=== PATIENT | male | born 1955 | race African-American/Black ===

== ENCOUNTER 2017-08-10 11:51 | Inpatient (IN) | payer MEDICARE, MEDICAID ==
[2017-08-10] VITALS (21 sets, daily range): BP systolic 80–142; BP diastolic 44–89
[~2017-08-10] VITALS: Ht 185.4 cm; Wt 115.2 kg
[~2017-08-10 11:51] MED LIST: ALLO100T PO; AMLO10TA80 PO; ASPI-1159 PO; ATOR20TA PO; CARI350T27 PO; CARV6.2548 PO; CLOP75TA16 PO; DULO60CA44 PO; FERR325T23 PO; FLUR30CA13 PO; FURO-151 PO; GABA-531 PO; HYDR-523 PO; LES20 PO; LORA-249 PO; LORA10TA7 PO; METF1000 PO; OMEP20CA10 PO; POTA8TAB4 PO; SITA100T11 PO; TRAM50TA73 PO; VALS160T2 PO; hydrochlorothiazide
[2017-08-10 12:29] LABS: HEMATOCRIT. 33.9 % (42.0-52.0); HEMOGLOBIN. 11.3 g/dL (14.0-18.0); MEAN CORPUSCULAR VOLUME 87.2 fL (80.0-94.0); MEAN PLATELET VOLUME 9.3 fl (7.4-10.4); PLATELET 92 x1000/uL (130-400); RED BLOOD CELL COUNT 3.89 mill/uL (4.7-6.1); RED CELL DISTRIBUTION WIDTH 13.9 % (11.6-14.6)
[2017-08-10 12:36] LABS: PROTHROMBIN TIME 10.5 sec (9.4-11.6)
[2017-08-10] MEDS ORDERED: SODIUM CHLORIDE 0.9% 1,000 ML IV ONE ×2 (12:45→15:15)
[2017-08-10 12:46] LABS: CARBON DIOXIDE 29 mEq/L (21-32); CHLORIDE 101 mEq/L (98-107); TROPONIN I 0.15 ng/mL (0.00-0.04)
[2017-08-10 13:03] LABS: PLATELET ESTIMATE DECREAS
[2017-08-10] MEDS ORDERED: SODIUM CHLORIDE 0.9% 500 ML IV ONE (14:30)
[2017-08-10] MEDS ORDERED: VANCOMYCIN 1 G PREMIX 200 ML IV ONE (15:15)
[2017-08-10] MEDS ORDERED: PIPERACILLIN/TAZ 3.375G PREMIX 50 ML IV ONE (15:15)
[2017-08-10] MEDS ORDERED: MIDAZOLAM HCL 2 MG/2 ML VIAL IV ONE (17:15)
[2017-08-10] MEDS ORDERED: MIDAZOLAM HCL 50 MG in DEXTROSE 5% WATER 40 ML IV ONE (17:15)
[2017-08-10] MEDS ORDERED: ETOMIDATE 2MG/ML 10ML VIAL IV ONE (17:50)
[2017-08-10] MEDS ORDERED: SUCCINYLCHOLINE CHLORIDE 200MG/10ML VIAL IV ONE (17:50)
[2017-08-10] MEDS ORDERED: NOREPINEPHRINE 4 MG in DEXT 5% WATER 246 ML IV PRN (18:00)
[2017-08-10] MEDS ORDERED: MIDAZOLAM HCL 50 MG in DEXTROSE 5% WATER 40 ML IV PRN (18:00)
[2017-08-10] MEDS ORDERED: NOREPINEPHRINE 4 MG in DEXT 5% WATER 246 ML IV ONE (18:00)
[2017-08-10 20:08] LABS: BG DEOXYHEMOGLOBIN 1.3 % (0.0-5.0); BG FRACTION INSPIRED OXYGEN 100; BG HCO3 ACT 23.9 mmol/L (22.0-26.0); BG METHEMOGLOBIN 0.4 % (0.0-1.5); BG OXYGEN SATURATION 98.7 % (92.0-98.5); BG OXYHEMOGLOBIN 98.3 % (94.0-97.0); BG PCO2 40.5 mmHg (35.0-45.0); BG PH 7.389 (7.350-7.450); BG PIP 25 cmH2O; BG PO2 138.8 mmHg (75.0-100.0); BG SAMPLE SITE LEFT RADIAL; BG TIDAL VOLUME(mL) 550 mL; BG TOTAL HEMOGLOBIN 11.1 g/dL (12.0-18.0); BG VENT MODE VENT - A/C; BG VENT RATE 12 set
[2017-08-10] MEDS ORDERED: NOREPINEPHRINE 8 MG in DEXT 5% WATER 242 ML IV PRN (21:00)
[2017-08-10] MEDS: DEXT 5%/0.9% NACL 1,000 ML IV SCH (21:11)
[2017-08-10] MEDS: ENOXAPARIN 40MG/0.4ML SYR SUBCUT SCH (21:12)
[2017-08-10] MEDS ORDERED: KCL 20MEQ/100ML PREMIX 100 ML IV NR (22:00)
[2017-08-10 22:23] LABS: CREATINE KINASE MB FRACTION 2.2 ng/mL (0.5-3.6); TROPONIN I 0.13 ng/mL (0.00-0.04)
[2017-08-10 22:57] LABS: BG BASE EXCESS 0.5 mmol/L (-2.0-2.0); BG DEOXYHEMOGLOBIN 0.7 % (0.0-5.0); BG FRACTION INSPIRED OXYGEN 90; BG HCO3 ACT 26.6 mmol/L (22.0-26.0); BG METHEMOGLOBIN 0.4 % (0.0-1.5); BG OXYGEN SATURATION 99.3 % (92.0-98.5); BG OXYHEMOGLOBIN 98.9 % (94.0-97.0); BG PEEP (cmH2O) 0 cmH2O; BG PH 7.352 (7.350-7.450); BG PO2 285.9 mmHg (75.0-100.0); BG SAMPLE SITE LEFT RADIAL; BG TIDAL VOLUME(mL) 500 mL; BG VENT MODE VENT - A/C; BG VENT RATE 12 set
[2017-08-10 23:16] LABS: CLARITY URINE TURBID (CLEAR); COLOR URINE YELLOW (YELLOW); GLUCOSE URINE NEGATIVE (NEGATIVE); KETONES URINE NEGATIVE (NEGATIVE); LEUKOCYTE ESTERASE URINE 3+ (NEGATIVE); NITRITE URINE NEGATIVE (NEGATIVE); OCCULT BLOOD URINE 2+ (NEGATIVE); PROTEIN URINE 2+ (NEGATIVE); SPECIFIC GRAVITY URINE 1.021 (1.005-1.030)
[2017-08-10 23:26] LABS: *AMPHETAMINES SCREEN URINE NEGATIVE (NEGATIVE); *BARBITURATES SCREEN URINE NEGATIVE (NEGATIVE); *BENZODIAZEPINES SCREEN URINE PRESUMTIVE POSITIVE (NEGATIVE); *COCAINE SCREEN URINE NEGATIVE (NEGATIVE); CANNABINOID URINE SCREEN NEGATIVE (NEGATIVE); METHADONE URINE SCREEN NEGATIVE (NEGATIVE); OPIATES URINE SCREEN PRESUMTIVE POSITIVE (NEGATIVE); PHENCYCLIDINE URINE SCREEN NEGATIVE (NEGATIVE)
[2017-08-11] VITALS (54 sets, daily range): BP systolic 90–195; BP diastolic 44–114
[2017-08-11] MEDS ORDERED: DEXTROSE 50% WATER 50ML SYRINGE IV PRN (00:30)
[2017-08-11 00:34] LABS: BG CARBOXYHEMOGLOBIN 0.3 % (0.5-1.5); BG DEOXYHEMOGLOBIN 0.7 % (0.0-5.0); BG FRACTION INSPIRED OXYGEN 70; BG HCO3 ACT 23.3 mmol/L (22.0-26.0); BG METHEMOGLOBIN 0.4 % (0.0-1.5); BG OXYGEN SATURATION 99.3 % (92.0-98.5); BG OXYHEMOGLOBIN 98.6 % (94.0-97.0); BG PEEP (cmH2O) 0 cmH2O; BG PH 7.454 (7.350-7.450); BG PO2 234.1 mmHg (75.0-100.0); BG SAMPLE SITE LEFT BRACHIAL; BG TIDAL VOLUME(mL) 550 mL; BG TOTAL HEMOGLOBIN 13.6 g/dL (12.0-18.0); BG VENT MODE VENT - A/C; BG VENT RATE 12 set
[2017-08-11] MEDS ORDERED: SODIUM CHLORIDE 0.9% 1000ML BAG (SEPSIS BOLUS) IV SCH (00:48)
[2017-08-11] MEDS: LORAZEPAM 2MG/ML CPJ IV PRN ×4 (01:09→07:59)
[2017-08-11] MEDS ORDERED: KETAMINE HCL 50 MG/ML 10ML IV SCH (02:45)
[2017-08-11] MEDS: MORPHINE SULFATE 10 MG/ML CPJ IV PRN ×2 (02:51→07:58)
[2017-08-11] MEDS ORDERED: ETOMIDATE 2MG/ML 10ML VIAL IV ONE ×2 (03:00→18:00)
[2017-08-11] MEDS ORDERED: SUCCINYLCHOLINE CHLORIDE 200MG/10ML VIAL IV ONE ×2 (03:00→18:00)
[2017-08-11] MEDS ORDERED: ALBUMIN HUMAN 25GM/500ML (5%) IV SCH (03:00)
[2017-08-11] MEDS: PIPERACILLIN/TAZOBACTAM 3.375 G in DEXTROSE 5% WATER 50 ML IV SCH ×4 (03:21→20:14)
[2017-08-11] MEDS ORDERED: VANCOMYCIN 1,750 MG in DEXT 5% WATER 500 ML IV SCH (04:00)
[2017-08-11 04:38] LABS: BG BASE EXCESS 0.5 mmol/L (-2.0-2.0); BG CARBOXYHEMOGLOBIN 0.3 % (0.5-1.5); BG DEOXYHEMOGLOBIN 0.7 % (0.0-5.0); BG FRACTION INSPIRED OXYGEN 100; BG METHEMOGLOBIN 0.4 % (0.0-1.5); BG OXYGEN SATURATION 99.3 % (92.0-98.5); BG OXYHEMOGLOBIN 98.6 % (94.0-97.0); BG PCO2 29.7 mmHg (35.0-45.0); BG PH 7.506 (7.350-7.450); BG PIP 24 cmH2O; BG PO2 271.1 mmHg (75.0-100.0); BG SAMPLE SITE LEFT BRACHIAL; BG TIDAL VOLUME(mL) 550 mL; BG TOTAL HEMOGLOBIN 10.8 g/dL (12.0-18.0); BG VENT MODE VENT - A/C; BG VENT RATE 12 set
[2017-08-11] MEDS ORDERED: PIPERACILLIN/TAZOBACTAM 2.25 G in DEXTROSE 5% WATER 50 ML IV SCH (06:00)
[2017-08-11] MEDS: BLOOD SUGAR DIAGNOSTIC STRIP TEST SCH ×3 (06:03→18:11)
[2017-08-11] MEDS: ACETAMINOPHEN 650MG/20.3ML UDC PO PRN ×2 (06:12→12:20)
[2017-08-11] MEDS: INSULIN LISPRO 100 UNITS/ML SUBCUT SCH ×3 (06:16→17:46)
[2017-08-11 06:57] LABS: CARBON DIOXIDE 27 mEq/L (21-32); CHLORIDE 106 mEq/L (98-107); HDL CHOLESTEROL 23 mg/dL (40-59); LDL CHOLESTEROL 33 mg/dL (5-100); T4 FREE 1.33 ng/dL (0.76-1.46); TOTAL IRON BINDING CAPACITY 225 ug/dL (250-450)
[2017-08-11] MEDS ORDERED: INSULIN LISPRO 100 UNITS/ML SUBCUT SCH (07:00)
[2017-08-11 07:04] LABS: PROSTRATE SPECIFIC AG TOTAL 23.54 ng/mL (0.0-4.0)
[2017-08-11 07:26] LABS: CREATINE KINASE MB FRACTION 1.8 ng/mL (0.5-3.6); PHOSPHORUS 1.1 mg/dL (2.5-4.9)
[2017-08-11 07:53] LABS: HEMATOCRIT. 31.9 % (42.0-52.0); HEMOGLOBIN. 10.4 g/dL (14.0-18.0); MEAN CORPUSCULAR HEMOGLOBIN 28.1 pg (28.0-32.0); MEAN CORPUSCULAR VOLUME 86.7 fL (80.0-94.0); MEAN PLATELET VOLUME 10.2 fl (7.4-10.4); PLATELET 95 x1000/uL (130-400); RED BLOOD CELL COUNT 3.68 mill/uL (4.7-6.1); RED CELL DISTRIBUTION WIDTH 13.7 % (11.6-14.6)
[2017-08-11 08:15] LABS: BG BASE EXCESS 0.4 mmol/L (-2.0-2.0); BG CARBOXYHEMOGLOBIN 0.2 % (0.5-1.5); BG DEOXYHEMOGLOBIN 0.9 % (0.0-5.0); BG HCO3 ACT 24.5 mmol/L (22.0-26.0); BG METHEMOGLOBIN 0.3 % (0.0-1.5); BG OXYGEN SATURATION 99.1 % (92.0-98.5); BG OXYHEMOGLOBIN 98.6 % (94.0-97.0); BG PCO2 37.2 mmHg (35.0-45.0); BG PH 7.436 (7.350-7.450); BG PO2 315.5 mmHg (75.0-100.0); BG SAMPLE SITE RIGHT BRACHIAL; BG TIDAL VOLUME(mL) 550 mL; BG TOTAL HEMOGLOBIN 10.7 g/dL (12.0-18.0); BG VENT MODE VENT - A/C; BG VENT RATE 12 set
[2017-08-11] MEDS: PANTOPRAZOLE SODIUM 40 MG/VIAL IV SCH (08:28)
[2017-08-11] MEDS: IPRATROPIUM/ALBUTEROL 0.5-3(2.5)MG/3ML NEB HHN SCH ×4 (08:37→20:46)
[2017-08-11 08:58] LABS: CREATINE KINASE 5601 IU/L (39-308)
[2017-08-11 09:00] LABS: PLATELET ESTIMATE DECREASED
[2017-08-11 11:57] LABS: BG BASE EXCESS -1.7 mmol/L (-2.0-2.0); BG CARBOXYHEMOGLOBIN 0.3 % (0.5-1.5); BG CPAP (cmH2O) 0 cm(H2O); BG DEOXYHEMOGLOBIN 4.6 % (0.0-5.0); BG HCO3 ACT 23.4 mmol/L (22.0-26.0); BG OXYGEN SATURATION 95.4 % (92.0-98.5); BG OXYHEMOGLOBIN 95.1 % (94.0-97.0); BG PCO2 41.3 mmHg (35.0-45.0); BG PEEP (cmH2O) 0 cmH2O; BG PH 7.372 (7.350-7.450); BG PO2 80.2 mmHg (75.0-100.0); BG PRESSURE SUPPORT 0; BG SAMPLE SITE RIGHT RADIAL; BG TOTAL HEMOGLOBIN 11.6 g/dL (12.0-18.0); BG VENT MODE VENT - CPAP
[2017-08-11] MEDS: DEXT 5%/0.9% NACL 1,000 ML IV SCH (14:22)
[2017-08-11] MEDS ORDERED: RACEPINEPHRINE 2.25% 0.5ML NEB VIAL HHN NR (15:00)
[2017-08-11] MEDS ORDERED: METHYLPREDNISOLONE SOD SUCC 40 MG/ML VIAL IV NR (15:00)
[2017-08-11 15:01] LABS: TROPONIN I 0.22 ng/mL (0.00-0.04)
[2017-08-11 15:08] LABS: CREATINE KINASE MB FRACTION 2.4 ng/mL (0.5-3.6)
[2017-08-11] MEDS ORDERED: RACEPINEPHRINE 2.25% 0.5ML NEB VIAL ONE (15:14)
[2017-08-11] MEDS ORDERED: MAGNESIUM 4 G PREMIX 100 ML IV SCH (16:00)
[2017-08-11] MEDS ORDERED: POTASSIUM PHOS M BASIC D BASIC IV NR (17:00)
[2017-08-11] MEDS ORDERED: IPRATROPIUM/ALBUTEROL 0.5-3(2.5)MG/3ML NEB HHN PRN (17:00)
[2017-08-11] MEDS ORDERED: SODIUM CHLORIDE 0.9% IV NR (17:00)
[2017-08-11] MEDS ORDERED: FUROSEMIDE 40MG/4ML VIAL IVP SCH (17:30)
[2017-08-11 17:43] LABS: BG BASE EXCESS -0.9 mmol/L (-2.0-2.0); BG CARBOXYHEMOGLOBIN 0.7 % (0.5-1.5); BG HCO3 ACT 27.1 mmol/L (22.0-26.0); BG METHEMOGLOBIN 0.5 % (0.0-1.5); BG OXYGEN SATURATION 89.9 % (92.0-98.5); BG OXYHEMOGLOBIN 88.8 % (94.0-97.0); BG PCO2 60.4 mmHg (35.0-45.0); BG PH 7.269 (7.350-7.450); BG PO2 62.8 mmHg (75.0-100.0); BG SAMPLE SITE RIGHT RADIAL; BG TOTAL HEMOGLOBIN 12.2 g/dL (12.0-18.0); BG VENT MODE MASK - AEROSOL
[2017-08-11] MEDS ORDERED: METHYLPREDNISOLONE SOD SUCC 40 MG/ML VIAL IV SCH (18:00)
[2017-08-11] MEDS: ENOXAPARIN 40MG/0.4ML SYR SUBCUT SCH (20:19)
[2017-08-11 21:02] LABS: BG CARBOXYHEMOGLOBIN 0.3 % (0.5-1.5); BG DEOXYHEMOGLOBIN 0.8 % (0.0-5.0); BG FRACTION INSPIRED OXYGEN 100; BG HCO3 ACT 26.1 mmol/L (22.0-26.0); BG METHEMOGLOBIN 0.5 % (0.0-1.5); BG OXYGEN SATURATION 99.2 % (92.0-98.5); BG OXYHEMOGLOBIN 98.4 % (94.0-97.0); BG PCO2 38.8 mmHg (35.0-45.0); BG PH 7.445 (7.350-7.450); BG PO2 359.1 mmHg (75.0-100.0); BG SAMPLE SITE RIGHT RADIAL; BG TIDAL VOLUME(mL) 550 mL; BG TOTAL HEMOGLOBIN 11.5 g/dL (12.0-18.0); BG VENT MODE VENT - A/C; BG VENT RATE 12 set
[2017-08-11] MEDS: INSULIN DETEMIR UD 100 UNITS/ML SYR SUBCUT SCH (21:06)
[2017-08-11] MEDS ORDERED: VANCOMYCIN 1250MG in DEXTROSE 5% WATER 250ML IV SCH (22:00)
[2017-08-12] VITALS (69 sets, daily range): BP systolic 73–169; BP diastolic 36–105
[2017-08-12] MEDS ORDERED: DEXAMETHASONE 4MG/ML 1ML VIAL IV SCH
[2017-08-12] MEDS: IPRATROPIUM/ALBUTEROL 0.5-3(2.5)MG/3ML NEB HHN SCH ×6 (00:13→19:58)
[2017-08-12] MEDS: INSULIN LISPRO 100 UNITS/ML SUBCUT SCH ×5 (00:59→23:16)
[2017-08-12] MEDS: DEXAMETHASONE 4MG/ML 1ML VIAL IV SCH ×5 (01:00→23:12)
[2017-08-12] MEDS: DEXT 5%/0.9% NACL 1,000 ML IV SCH ×2 (01:12→17:43)
[2017-08-12] MEDS ORDERED: LEVOFLOXACIN 500MG PREMIX 100 ML IV SCH (02:00)
[2017-08-12] MEDS: PIPERACILLIN/TAZOBACTAM 3.375 G in DEXTROSE 5% WATER 50 ML IV SCH ×4 (03:03→20:17)
[2017-08-12] MEDS: MORPHINE SULFATE 10 MG/ML CPJ IV PRN (05:22)
[2017-08-12] MEDS: BLOOD SUGAR DIAGNOSTIC STRIP TEST SCH ×5 (05:33→23:17)
[2017-08-12 05:51] LABS: HEMATOCRIT. 31.6 % (42.0-52.0); HEMOGLOBIN. 10.5 g/dL (14.0-18.0); MEAN CORPUSCULAR HEMOGLOBIN 28.7 pg (28.0-32.0); MEAN PLATELET VOLUME 9.4 fl (7.4-10.4); PLATELET 104 x1000/uL (130-400); RED BLOOD CELL COUNT 3.67 mill/uL (4.7-6.1); RED CELL DISTRIBUTION WIDTH 13.9 % (11.6-14.6)
[2017-08-12 06:44] LABS: CARBON DIOXIDE 29 mEq/L (21-32); CHLORIDE 108 mEq/L (98-107); PHOSPHORUS 2.5 mg/dL (2.5-4.9); T4 FREE 1.23 ng/dL (0.76-1.46); TOTAL IRON BINDING CAPACITY 182 ug/dL (250-450)
[2017-08-12] MEDS: PROPOFOL 10MG/ML 100ML 100 ML IV PRN ×3 (07:32→21:24)
[2017-08-12] MEDS: PANTOPRAZOLE SODIUM 40 MG/VIAL IV SCH (08:41)
[2017-08-12 09:08] LABS: BG BASE EXCESS 4.3 mmol/L (-2.0-2.0); BG CARBOXYHEMOGLOBIN 0.3 % (0.5-1.5); BG DEOXYHEMOGLOBIN 2.3 % (0.0-5.0); BG FRACTION INSPIRED OXYGEN 40; BG HCO3 ACT 27.3 mmol/L (22.0-26.0); BG METHEMOGLOBIN 0.3 % (0.0-1.5); BG OXYGEN SATURATION 97.7 % (92.0-98.5); BG OXYHEMOGLOBIN 97.1 % (94.0-97.0); BG PO2 100.1 mmHg (75.0-100.0); BG SAMPLE SITE RIGHT RADIAL; BG TIDAL VOLUME(mL) 550 mL; BG TOTAL HEMOGLOBIN 11.1 g/dL (12.0-18.0); BG VENT MODE VENT - A/C; BG VENT RATE 12 set
[2017-08-12 10:13] LABS: PLATELET ESTIMATE DECREASED
[2017-08-12] MEDS: INSULIN DETEMIR UD 100 UNITS/ML SYR SUBCUT SCH ×2 (10:51→23:16)
[2017-08-12 13:06] LABS: BG BASE EXCESS 2.9 mmol/L (-2.0-2.0); BG CARBOXYHEMOGLOBIN 0.3 % (0.5-1.5); BG DEOXYHEMOGLOBIN 2.5 % (0.0-5.0); BG FRACTION INSPIRED OXYGEN 35; BG HCO3 ACT 27.4 mmol/L (22.0-26.0); BG METHEMOGLOBIN 0.3 % (0.0-1.5); BG OXYGEN SATURATION 97.5 % (92.0-98.5); BG OXYHEMOGLOBIN 96.9 % (94.0-97.0); BG PCO2 41.8 mmHg (35.0-45.0); BG PH 7.435 (7.350-7.450); BG PO2 100.5 mmHg (75.0-100.0); BG PRESSURE SUPPORT 12; BG SAMPLE SITE LEFT RADIAL; BG TIDAL VOLUME(mL) 550 mL; BG TOTAL HEMOGLOBIN 10.9 g/dL (12.0-18.0); BG VENT MODE VENT - SIMV; BG VENT RATE 10 set
[2017-08-12] MEDS: ENOXAPARIN 40MG/0.4ML SYR SUBCUT SCH (20:12)
[2017-08-12] MEDS: MORPHINE SULFATE 2 MG/ML CPJ (NOT FOR IM USE) IV PRN (20:14)
[2017-08-13] VITALS (78 sets, daily range): BP systolic 117–161; BP diastolic 70–102
[2017-08-13] MEDS: IPRATROPIUM/ALBUTEROL 0.5-3(2.5)MG/3ML NEB HHN SCH ×6 (00:30→20:34)
[2017-08-13] MEDS: DEXT 5%/0.9% NACL 1,000 ML IV SCH ×2 (00:44→08:36)
[2017-08-13] MEDS: PROPOFOL 10MG/ML 100ML 100 ML IV PRN ×7 (00:45→23:42)
[2017-08-13] MEDS ORDERED: MEROPENEM 1,000 MG in SODIUM CHLORIDE 0.9% 100 ML IV SCH (01:00)
[2017-08-13 03:52] LABS: CLARITY URINE CLEAR (CLEAR); COLOR URINE YELLOW (YELLOW); GLUCOSE URINE TRACE (NEGATIVE); KETONES URINE NEGATIVE (NEGATIVE); LEUKOCYTE ESTERASE URINE NEGATIVE (NEGATIVE); NITRITE URINE NEGATIVE (NEGATIVE); OCCULT BLOOD URINE NEGATIVE (NEGATIVE); PH URINE 5.5 (4.5-8.0); PROTEIN URINE 2+ (NEGATIVE); SPECIFIC GRAVITY URINE 1.037 (1.005-1.030)
[2017-08-13] MEDS: DEXAMETHASONE 4MG/ML 1ML VIAL IV SCH ×4 (05:09→23:01)
[2017-08-13] MEDS: BLOOD SUGAR DIAGNOSTIC STRIP TEST SCH ×4 (05:11→23:01)
[2017-08-13] MEDS: MORPHINE SULFATE 2 MG/ML CPJ (NOT FOR IM USE) IV PRN (05:11)
[2017-08-13 05:13] LABS: BASOPHILS % 0.1 % (0.0-2.0); HEMATOCRIT. 32.5 % (42.0-52.0); HEMOGLOBIN. 10.7 g/dL (14.0-18.0); LYMPHOCYTES % 7.2 % (20.0-50.0); MEAN CORPUSCULAR HEMOGLOBIN 28.6 pg (28.0-32.0); MEAN CORPUSCULAR VOLUME 86.6 fL (80.0-94.0); MEAN PLATELET VOLUME 9.4 fl (7.4-10.4); NEUTROPHILS % 81.7 % (40.0-76.0); PLATELET 105 x1000/uL (130-400); RED BLOOD CELL COUNT 3.75 mill/uL (4.7-6.1); RED CELL DISTRIBUTION WIDTH 14.1 % (11.6-14.6)
[2017-08-13] MEDS: INSULIN LISPRO 100 UNITS/ML SUBCUT SCH ×4 (05:15→23:01)
[2017-08-13 05:36] LABS: CARBON DIOXIDE 30 mEq/L (21-32)
[2017-08-13 07:22] LABS: CHLORIDE 109 mEq/L (98-107)
[2017-08-13] MEDS: PANTOPRAZOLE SODIUM 40 MG/VIAL IV SCH (08:35)
[2017-08-13] MEDS: INSULIN DETEMIR UD 100 UNITS/ML SYR SUBCUT SCH ×2 (10:28→23:02)
[2017-08-13] MEDS: LORAZEPAM 2MG/ML CPJ IV PRN ×2 (12:31→16:04)
[2017-08-13] MEDS: MEROPENEM 1000MG in NORMAL SALINE 100ML IV SCH ×2 (16:03→23:01)
[2017-08-13] MEDS: ENOXAPARIN 40MG/0.4ML SYR SUBCUT SCH (20:49)
[2017-08-14] VITALS (97 sets, daily range): BP systolic 127–178; BP diastolic 65–101
[2017-08-14] MEDS: IPRATROPIUM/ALBUTEROL 0.5-3(2.5)MG/3ML NEB HHN SCH ×5 (00:18→20:45)
[2017-08-14] MEDS: PROPOFOL 10MG/ML 100ML 100 ML IV PRN ×5 (02:50→23:27)
[2017-08-14] MEDS: DEXAMETHASONE 4MG/ML 1ML VIAL IV SCH ×4 (05:08→23:16)
[2017-08-14] MEDS: BLOOD SUGAR DIAGNOSTIC STRIP TEST SCH ×4 (05:08→23:16)
[2017-08-14] MEDS: INSULIN LISPRO 100 UNITS/ML SUBCUT SCH ×4 (05:10→23:16)
[2017-08-14 05:54] LABS: CARBON DIOXIDE 26 mEq/L (21-32); CHLORIDE 114 mEq/L (98-107); PHOSPHORUS 1.7 mg/dL (2.5-4.9)
[2017-08-14 07:25] LABS: BG BASE EXCESS 1.9 mmol/L (-2.0-2.0); BG CARBOXYHEMOGLOBIN 0.3 % (0.5-1.5); BG DEOXYHEMOGLOBIN 7.5 % (0.0-5.0); BG FRACTION INSPIRED OXYGEN 30; BG HCO3 ACT 25.3 mmol/L (22.0-26.0); BG METHEMOGLOBIN 0.4 % (0.0-1.5); BG OXYGEN SATURATION 92.4 % (92.0-98.5); BG OXYHEMOGLOBIN 91.8 % (94.0-97.0); BG PCO2 35.1 mmHg (35.0-45.0); BG PH 7.475 (7.350-7.450); BG PO2 63.4 mmHg (75.0-100.0); BG PRESSURE SUPPORT 12; BG SAMPLE SITE RIGHT RADIAL; BG TIDAL VOLUME(mL) 600 mL; BG TOTAL HEMOGLOBIN 10.8 g/dL (12.0-18.0); BG VENT MODE VENT - SIMV; BG VENT RATE 8 set
[2017-08-14 07:32] LABS: BASOPHILS % 0.3 % (0.0-2.0); EOSINOPHILS % 0.2 % (0.0-5.0); HEMATOCRIT. 31.5 % (42.0-52.0); HEMOGLOBIN. 10.5 g/dL (14.0-18.0); MEAN CORPUSCULAR HEMOGLOBIN 28.6 pg (28.0-32.0); MEAN CORPUSCULAR VOLUME 86.1 fL (80.0-94.0); MEAN PLATELET VOLUME 9.3 fl (7.4-10.4); NEUTROPHILS % 82.5 % (40.0-76.0); PLATELET 154 x1000/uL (130-400); RED BLOOD CELL COUNT 3.66 mill/uL (4.7-6.1); RED CELL DISTRIBUTION WIDTH 14.1 % (11.6-14.6)
[2017-08-14] MEDS: MEROPENEM 1000MG in NORMAL SALINE 100ML IV SCH ×3 (08:17→23:16)
[2017-08-14] MEDS: MORPHINE SULFATE 2 MG/ML CPJ (NOT FOR IM USE) IV PRN (08:17)
[2017-08-14] MEDS: PANTOPRAZOLE SODIUM 40 MG/VIAL IV SCH (08:17)
[2017-08-14] MEDS: INSULIN DETEMIR UD 100 UNITS/ML SYR SUBCUT SCH ×2 (12:00→23:17)
[2017-08-14] MEDS: GABAPENTIN 300MG CAPSULE PO SCH ×2 (13:06→17:38)
[2017-08-14] MEDS: CALCIUM CARBONATE/VITAMIN D3 500MG TABLET PO SCH (13:06)
[2017-08-14] MEDS ORDERED: POTASSIUM PHOS,M-BASIC-D-BASIC 20 MMOL in DEXT 5% WATER 250 ML IV NR (14:30)
[2017-08-14] MEDS: POTASSIUM-SODIUM PHOSPHATE POWDER PACKET PO SCH (17:38)
[2017-08-14] MEDS: ENOXAPARIN 40MG/0.4ML SYR SUBCUT SCH (22:35)
[2017-08-14] MEDS: ATORVASTATIN CALCIUM 20MG TABLET PO SCH (22:35)
[2017-08-15] VITALS (89 sets, daily range): BP systolic 125–199; BP diastolic 59–99
[2017-08-15] MEDS: IPRATROPIUM/ALBUTEROL 0.5-3(2.5)MG/3ML NEB HHN SCH ×6 (01:20→20:15)
[2017-08-15] MEDS: PROPOFOL 10MG/ML 100ML 100 ML IV PRN ×5 (04:24→22:28)
[2017-08-15 05:25] LABS: BASOPHILS % 0.2 % (0.0-2.0); EOSINOPHILS % 0.1 % (0.0-5.0); HEMATOCRIT. 30.2 % (42.0-52.0); LYMPHOCYTES % 9.7 % (20.0-50.0); MEAN CORPUSCULAR HEMOGLOBIN 28.5 pg (28.0-32.0); MEAN CORPUSCULAR VOLUME 86.1 fL (80.0-94.0); MEAN PLATELET VOLUME 8.7 fl (7.4-10.4); MONOCYTES % 8.3 % (2.0-8.0); NEUTROPHILS % 81.7 % (40.0-76.0); PLATELET 174 x1000/uL (130-400); RED BLOOD CELL COUNT 3.51 mill/uL (4.7-6.1); RED CELL DISTRIBUTION WIDTH 13.9 % (11.6-14.6)
[2017-08-15 05:53] LABS: CARBON DIOXIDE 30 mEq/L (21-32); CHLORIDE 113 mEq/L (98-107); PHOSPHORUS 2.7 mg/dL (2.5-4.9)
[2017-08-15] MEDS: DEXAMETHASONE 4MG/ML 1ML VIAL IV SCH ×4 (05:59→23:18)
[2017-08-15] MEDS: INSULIN LISPRO 100 UNITS/ML SUBCUT SCH ×4 (06:00→23:44)
[2017-08-15] MEDS: BLOOD SUGAR DIAGNOSTIC STRIP TEST SCH ×4 (06:00→23:54)
[2017-08-15] MEDS: LACTOBACILLUS GG CAPSULE PO SCH (08:55)
[2017-08-15] MEDS: PANTOPRAZOLE SODIUM 40 MG/VIAL IV SCH (08:55)
[2017-08-15] MEDS: POTASSIUM-SODIUM PHOSPHATE POWDER PACKET PO SCH ×2 (08:55→16:21)
[2017-08-15] MEDS: GABAPENTIN 300MG CAPSULE PO SCH ×3 (08:55→16:21)
[2017-08-15] MEDS: MEROPENEM 1000MG in NORMAL SALINE 100ML IV SCH ×3 (08:55→23:18)
[2017-08-15] MEDS: CALCIUM CARBONATE/VITAMIN D3 500MG TABLET PO SCH (08:55)
[2017-08-15] MEDS: POTASSIUM CHLORIDE 20MEQ/PACKET PO PRN ×2 (09:02→17:42)
[2017-08-15] MEDS: FUROSEMIDE 20MG/2ML VIAL IVP PRN ×2 (09:02→17:42)
[2017-08-15] MEDS: INSULIN DETEMIR UD 100 UNITS/ML SYR SUBCUT SCH ×2 (11:42→22:13)
[2017-08-15 13:19] LABS: HEPATITIS B SURFACE ANTIGEN NEGATIVE
[2017-08-15 13:44] LABS: HEPATITIS B CORE AB IGM NEGATIVE
[2017-08-15 13:45] LABS: HEPATITIS A AB IGM NEGATIVE (NEGATIVE)
[2017-08-15 16:54] LABS: BG BASE EXCESS 9.1 mmol/L (-2.0-2.0); BG DEOXYHEMOGLOBIN 5.7 % (0.0-5.0); BG HCO3 ACT 33.4 mmol/L (22.0-26.0); BG METHEMOGLOBIN 0.3 % (0.0-1.5); BG OXYGEN SATURATION 94.3 % (92.0-98.5); BG PCO2 44.3 mmHg (35.0-45.0); BG PH 7.495 (7.350-7.450); BG PO2 70.8 mmHg (75.0-100.0); BG SAMPLE SITE RIGHT RADIAL; BG TIDAL VOLUME(mL) 600 mL; BG TOTAL HEMOGLOBIN 11.4 g/dL (12.0-18.0); BG VENT MODE VENT - SIMV; BG VENT RATE 8 set
[2017-08-15] MEDS: ATORVASTATIN CALCIUM 20MG TABLET PO SCH (21:05)
[2017-08-15] MEDS: ENOXAPARIN 40MG/0.4ML SYR SUBCUT SCH (21:06)
[2017-08-15] MEDS: MORPHINE SULFATE 2 MG/ML CPJ (NOT FOR IM USE) IV PRN (22:14)
[2017-08-15] MEDS: LORAZEPAM 2MG/ML CPJ IV PRN (23:41)
[2017-08-16] VITALS (83 sets, daily range): BP systolic 127–174; BP diastolic 44–105
[2017-08-16] MEDS: IPRATROPIUM/ALBUTEROL 0.5-3(2.5)MG/3ML NEB HHN SCH ×6 (00:22→20:51)
[2017-08-16] MEDS: LORAZEPAM 2MG/ML CPJ IV PRN ×3 (02:16→17:39)
[2017-08-16] MEDS: PROPOFOL 10MG/ML 100ML 100 ML IV PRN ×3 (02:16→09:33)
[2017-08-16 05:35] LABS: BASOPHILS % 0.1 % (0.0-2.0); EOSINOPHILS % 0.2 % (0.0-5.0); HEMATOCRIT. 33.1 % (42.0-52.0); MEAN CORPUSCULAR HEMOGLOBIN 28.5 pg (28.0-32.0); MEAN PLATELET VOLUME 8.9 fl (7.4-10.4); NEUTROPHILS % 84.7 % (40.0-76.0); PLATELET 223 x1000/uL (130-400); RED BLOOD CELL COUNT 3.84 mill/uL (4.7-6.1)
[2017-08-16 05:59] LABS: CARBON DIOXIDE 31 mEq/L (21-32); CHLORIDE 106 mEq/L (98-107)
[2017-08-16] MEDS: INSULIN LISPRO 100 UNITS/ML SUBCUT SCH ×3 (06:00→17:30)
[2017-08-16] MEDS: DEXAMETHASONE 4MG/ML 1ML VIAL IV SCH ×3 (06:11→17:30)
[2017-08-16] MEDS: BLOOD SUGAR DIAGNOSTIC STRIP TEST SCH ×3 (06:46→17:25)
[2017-08-16] MEDS: PANTOPRAZOLE SODIUM 40 MG/VIAL IV SCH (08:53)
[2017-08-16] MEDS: MEROPENEM 1000MG in NORMAL SALINE 100ML IV SCH ×2 (08:53→17:30)
[2017-08-16] MEDS: GABAPENTIN 300MG CAPSULE PO SCH ×3 (08:53→17:30)
[2017-08-16] MEDS: CALCIUM CARBONATE/VITAMIN D3 500MG TABLET PO SCH (08:53)
[2017-08-16] MEDS: LACTOBACILLUS GG CAPSULE PO SCH (08:53)
[2017-08-16] MEDS: POTASSIUM-SODIUM PHOSPHATE POWDER PACKET PO SCH ×2 (08:53→17:30)
[2017-08-16] MEDS: INSULIN DETEMIR UD 100 UNITS/ML SYR SUBCUT SCH ×2 (09:31→21:55)
[2017-08-16 10:05] LABS: BG CARBOXYHEMOGLOBIN 0.3 % (0.5-1.5); BG FRACTION INSPIRED OXYGEN 30; BG METHEMOGLOBIN 0.4 % (0.0-1.5); BG OXYHEMOGLOBIN 93.3 % (94.0-97.0); BG PCO2 40.6 mmHg (35.0-45.0); BG PH 7.472 (7.350-7.450); BG PO2 73.1 mmHg (75.0-100.0); BG PRESSURE SUPPORT 12; BG SAMPLE SITE RIGHT RADIAL; BG TIDAL VOLUME(mL) 600 mL; BG TOTAL HEMOGLOBIN 11.2 g/dL (12.0-18.0); BG VENT MODE VENT - SIMV; BG VENT RATE 4 set
[2017-08-16 16:25] LABS: BG BASE EXCESS 7.9 mmol/L (-2.0-2.0); BG CARBOXYHEMOGLOBIN 0.3 % (0.5-1.5); BG CPAP (cmH2O) 0 cm(H2O); BG DEOXYHEMOGLOBIN 5.1 % (0.0-5.0); BG HCO3 ACT 31.5 mmol/L (22.0-26.0); BG METHEMOGLOBIN 0.4 % (0.0-1.5); BG OXYGEN SATURATION 94.9 % (92.0-98.5); BG OXYHEMOGLOBIN 94.2 % (94.0-97.0); BG PCO2 40.3 mmHg (35.0-45.0); BG PH 7.511 (7.350-7.450); BG PO2 75.2 mmHg (75.0-100.0); BG SAMPLE SITE RIGHT RADIAL; BG TOTAL HEMOGLOBIN 11.7 g/dL (12.0-18.0); BG VENT MODE VENT - CPAP
[2017-08-16] MEDS: ATORVASTATIN CALCIUM 20MG TABLET PO SCH (21:54)
[2017-08-17] VITALS (79 sets, daily range): BP systolic 134–184; BP diastolic 54–132
[2017-08-17] MEDS: ACETAMINOPHEN 650MG/20.3ML UDC PO PRN (00:09)
[2017-08-17] MEDS: BLOOD SUGAR DIAGNOSTIC STRIP TEST SCH ×4 (00:09→17:23)
[2017-08-17] MEDS: DEXAMETHASONE 4MG/ML 1ML VIAL IV SCH ×5 (00:09→23:57)
[2017-08-17] MEDS: MEROPENEM 1000MG in NORMAL SALINE 100ML IV SCH ×4 (00:09→23:57)
[2017-08-17] MEDS: IPRATROPIUM/ALBUTEROL 0.5-3(2.5)MG/3ML NEB HHN SCH ×6 (00:27→21:01)
[2017-08-17] MEDS: INSULIN LISPRO 100 UNITS/ML SUBCUT SCH ×5 (05:37→23:58)
[2017-08-17 05:38] LABS: BASOPHILS % 0.1 % (0.0-2.0); EOSINOPHILS % 0.6 % (0.0-5.0); HEMATOCRIT. 33.4 % (42.0-52.0); HEMOGLOBIN. 11.1 g/dL (14.0-18.0); MEAN CORPUSCULAR HEMOGLOBIN 28.3 pg (28.0-32.0); MEAN CORPUSCULAR VOLUME 85.4 fL (80.0-94.0); MEAN PLATELET VOLUME 8.8 fl (7.4-10.4); MONOCYTES % 5.8 % (2.0-8.0); NEUTROPHILS % 83.5 % (40.0-76.0); PLATELET 276 x1000/uL (130-400); RED BLOOD CELL COUNT 3.91 mill/uL (4.7-6.1); RED CELL DISTRIBUTION WIDTH 14.1 % (11.6-14.6)
[2017-08-17 06:08] LABS: CARBON DIOXIDE 30 mEq/L (21-32); CHLORIDE 106 mEq/L (98-107)
[2017-08-17] MEDS: POTASSIUM-SODIUM PHOSPHATE POWDER PACKET PO SCH ×2 (09:00→17:25)
[2017-08-17] MEDS: INSULIN DETEMIR UD 100 UNITS/ML SYR SUBCUT SCH ×2 (10:00→22:49)
[2017-08-17 10:01] LABS: BG BASE EXCESS 6.2 mmol/L (-2.0-2.0); BG CARBOXYHEMOGLOBIN 0.3 % (0.5-1.5); BG DEOXYHEMOGLOBIN 4.5 % (0.0-5.0); BG FRACTION INSPIRED OXYGEN 35; BG HCO3 ACT 29.3 mmol/L (22.0-26.0); BG METHEMOGLOBIN 0.8 % (0.0-1.5); BG OXYGEN SATURATION 95.4 % (92.0-98.5); BG OXYHEMOGLOBIN 94.4 % (94.0-97.0); BG PCO2 36.5 mmHg (35.0-45.0); BG PH 7.522 (7.350-7.450); BG PO2 82.1 mmHg (75.0-100.0); BG SAMPLE SITE RIGHT RADIAL; BG VENT MODE T-TUBE
[2017-08-17] MEDS: PANTOPRAZOLE SODIUM 40 MG/VIAL IV SCH (10:41)
[2017-08-17] MEDS: GABAPENTIN 300MG CAPSULE PO SCH ×3 (10:42→17:25)
[2017-08-17] MEDS: LACTOBACILLUS GG CAPSULE PO SCH (10:42)
[2017-08-17] MEDS: ENOXAPARIN 30MG/0.3ML SYR SUBCUT SCH ×2 (10:42→21:17)
[2017-08-17] MEDS: CALCIUM CARBONATE/VITAMIN D3 500MG TABLET PO SCH (10:43)
[2017-08-17 12:57] LABS: BG BASE EXCESS 4.9 mmol/L (-2.0-2.0); BG CARBOXYHEMOGLOBIN 0.3 % (0.5-1.5); BG DEOXYHEMOGLOBIN 6.9 % (0.0-5.0); BG FRACTION INSPIRED OXYGEN 35; BG HCO3 ACT 28.6 mmol/L (22.0-26.0); BG METHEMOGLOBIN 0.4 % (0.0-1.5); BG OXYGEN SATURATION 93.1 % (92.0-98.5); BG OXYHEMOGLOBIN 92.4 % (94.0-97.0); BG PH 7.483 (7.350-7.450); BG PO2 68.1 mmHg (75.0-100.0); BG SAMPLE SITE RIGHT BRACHIAL; BG TOTAL HEMOGLOBIN 11.9 g/dL (12.0-18.0); BG VENT MODE MASK - AEROSOL
[2017-08-17] MEDS: ATORVASTATIN CALCIUM 20MG TABLET PO SCH (21:17)
[2017-08-18] VITALS (76 sets, daily range): BP systolic 118–183; BP diastolic 64–137
[2017-08-18] MEDS: BLOOD SUGAR DIAGNOSTIC STRIP TEST SCH ×4 (00:06→17:05)
[2017-08-18] MEDS: IPRATROPIUM/ALBUTEROL 0.5-3(2.5)MG/3ML NEB HHN SCH ×6 (00:20→20:39)
[2017-08-18] MEDS: CLONIDINE 0.1MG TABLET PO PRN (03:04)
[2017-08-18] MEDS: INSULIN LISPRO 100 UNITS/ML SUBCUT SCH ×3 (05:54→17:23)
[2017-08-18] MEDS: DEXAMETHASONE 4MG/ML 1ML VIAL IV SCH ×3 (05:54→17:18)
[2017-08-18] MEDS: GABAPENTIN 300MG CAPSULE PO SCH ×3 (08:37→17:18)
[2017-08-18] MEDS: CALCIUM CARBONATE/VITAMIN D3 500MG TABLET PO SCH (08:37)
[2017-08-18] MEDS: MEROPENEM 1000MG in NORMAL SALINE 100ML IV SCH ×2 (08:37→16:00)
[2017-08-18] MEDS: LACTOBACILLUS GG CAPSULE PO SCH (08:37)
[2017-08-18] MEDS: POTASSIUM-SODIUM PHOSPHATE POWDER PACKET PO SCH ×2 (08:37→17:18)
[2017-08-18] MEDS: ENOXAPARIN 30MG/0.3ML SYR SUBCUT SCH ×2 (08:38→20:26)
[2017-08-18] MEDS: PANTOPRAZOLE SODIUM 40 MG/VIAL IV SCH (08:38)
[2017-08-18 10:30] LABS: BASOPHILS % 0.1 % (0.0-2.0); EOSINOPHILS % 0.2 % (0.0-5.0); HEMATOCRIT. 33.9 % (42.0-52.0); HEMOGLOBIN. 11.2 g/dL (14.0-18.0); MEAN CORPUSCULAR HEMOGLOBIN 28.3 pg (28.0-32.0); MEAN CORPUSCULAR VOLUME 85.9 fL (80.0-94.0); MEAN PLATELET VOLUME 8.6 fl (7.4-10.4); MONOCYTES % 4.7 % (2.0-8.0); PLATELET 272 x1000/uL (130-400); RED BLOOD CELL COUNT 3.95 mill/uL (4.7-6.1); RED CELL DISTRIBUTION WIDTH 13.6 % (11.6-14.6)
[2017-08-18] MEDS: INSULIN DETEMIR UD 100 UNITS/ML SYR SUBCUT SCH (10:39)
[2017-08-18 11:12] LABS: PHOSPHORUS 2.6 mg/dL (2.5-4.9)
[2017-08-18 11:32] LABS: HEPATITIS B SURFACE ANTIGEN NEGATIVE
[2017-08-18 12:00] LABS: HEPATITIS B CORE AB IGM NEGATIVE
[2017-08-18 12:02] LABS: HEPATITIS A AB IGM NEGATIVE (NEGATIVE)
[2017-08-18 15:42] LABS: CLARITY URINE CLEAR (CLEAR); COLOR URINE YELLOW (YELLOW); GLUCOSE URINE NEGATIVE (NEGATIVE); KETONES URINE NEGATIVE (NEGATIVE); LEUKOCYTE ESTERASE URINE NEGATIVE (NEGATIVE); NITRITE URINE NEGATIVE (NEGATIVE); OCCULT BLOOD URINE 1+ (NEGATIVE); PH URINE 6.5 (4.5-8.0); PROTEIN URINE TRACE (NEGATIVE); SPECIFIC GRAVITY URINE 1.022 (1.005-1.030); UROBILINOGEN URINE 0.2 E.U./dL (0.2-1.0)
[2017-08-18] MEDS: ATORVASTATIN CALCIUM 20MG TABLET PO SCH (20:25)
[2017-08-18] MEDS: DULOXETINE HCL 30MG DR CAPSULE PO SCH (20:25)
[2017-08-18] MEDS: BUSPIRONE HCL 10MG TABLET PO SCH (20:26)
[2017-08-19] VITALS (8 sets, daily range): BP systolic 124–154; BP diastolic 60–100
[2017-08-19] MEDS: MEROPENEM 1000MG in NORMAL SALINE 100ML IV SCH ×3 (00:12→17:05)
[2017-08-19] MEDS: IPRATROPIUM/ALBUTEROL 0.5-3(2.5)MG/3ML NEB HHN SCH ×5 (00:24→16:18)
[2017-08-19] MEDS: INSULIN DETEMIR UD 100 UNITS/ML SYR SUBCUT SCH ×2 (02:37→11:51)
[2017-08-19] MEDS: DEXAMETHASONE 4MG/ML 1ML VIAL IV SCH ×4 (02:50→17:04)
[2017-08-19] MEDS: CLONIDINE 0.1MG TABLET PO PRN ×2 (05:21→05:22)
[2017-08-19] MEDS: BLOOD SUGAR DIAGNOSTIC STRIP TEST SCH ×4 (05:43→17:05)
[2017-08-19] MEDS: INSULIN LISPRO 100 UNITS/ML SUBCUT SCH ×4 (06:00→17:05)
[2017-08-19 06:49] LABS: BASOPHILS % 0.1 % (0.0-2.0); EOSINOPHILS % 0.4 % (0.0-5.0); HEMATOCRIT. 32.1 % (42.0-52.0); HEMOGLOBIN. 10.6 g/dL (14.0-18.0); LYMPHOCYTES % 8.4 % (20.0-50.0); MEAN CORPUSCULAR HEMOGLOBIN 28.2 pg (28.0-32.0); MEAN PLATELET VOLUME 8.4 fl (7.4-10.4); MONOCYTES % 5.4 % (2.0-8.0); NEUTROPHILS % 85.7 % (40.0-76.0); PLATELET 278 x1000/uL (130-400); RED BLOOD CELL COUNT 3.74 mill/uL (4.7-6.1); RED CELL DISTRIBUTION WIDTH 13.8 % (11.6-14.6)
[2017-08-19 07:06] LABS: CARBON DIOXIDE 29 mEq/L (21-32); CHLORIDE 100 mEq/L (98-107); PHOSPHORUS 2.3 mg/dL (2.5-4.9)
[2017-08-19] MEDS: CALCIUM CARBONATE/VITAMIN D3 500MG TABLET PO SCH (09:00)
[2017-08-19] MEDS: LACTOBACILLUS GG CAPSULE PO SCH (09:00)
[2017-08-19] MEDS: GABAPENTIN 300MG CAPSULE PO SCH ×4 (10:08→17:04)
[2017-08-19] MEDS: POTASSIUM-SODIUM PHOSPHATE POWDER PACKET PO SCH ×2 (10:08→17:04)
[2017-08-19] MEDS: PANTOPRAZOLE SODIUM 40 MG/VIAL IV SCH (10:08)
[2017-08-19] MEDS: ENOXAPARIN 30MG/0.3ML SYR SUBCUT SCH ×2 (10:08→20:52)
[2017-08-19] MEDS: BUSPIRONE HCL 10MG TABLET PO SCH ×2 (11:49→20:51)
[2017-08-19 13:08] LABS: CLARITY URINE CLEAR (CLEAR); COLOR URINE YELLOW (YELLOW); GLUCOSE URINE NEGATIVE (NEGATIVE); KETONES URINE NEGATIVE (NEGATIVE); LEUKOCYTE ESTERASE URINE NEGATIVE (NEGATIVE); NITRITE URINE NEGATIVE (NEGATIVE); OCCULT BLOOD URINE 2+ (NEGATIVE); PH URINE 6.5 (4.5-8.0); PROTEIN URINE TRACE (NEGATIVE); SPECIFIC GRAVITY URINE 1.019 (1.005-1.030); UROBILINOGEN URINE 0.2 E.U./dL (0.2-1.0)
[2017-08-19] MEDS: HYDROCODONE/ACETAMINOPHEN 10/325MG TABLET PO PRN ×2 (13:31→20:09)
[2017-08-19] MEDS: ATORVASTATIN CALCIUM 20MG TABLET PO SCH (20:51)
[2017-08-19] MEDS: DULOXETINE HCL 30MG DR CAPSULE PO SCH (20:51)
== END 2017-08-19 21:40 | DRG 870 ==
LOC: ER 12:05 → MICUSO 15:09 → ENRESERV 15:56 → CANRESERV 15:56 → EDBEDREQSVC 17:44 → ENRESERV 17:53 → 5WST 08-18 21:05
PROVIDERS: ADMIT Internal Medicine; ATTEND Internal Medicine
PROC: 5A1955Z Respiratory Ventilation, Greater than 96 Consecutive Hours (ICD-10-PCS; principal; 2017-08-10)
PROC: 0BH17EZ Insertion of Endotracheal Airway into Trachea, Via Natural or Artificial Opening (ICD-10-PCS; 2017-08-10)
DX: A41.51 Sepsis due to Escherichia coli [E. coli] (principal); J96.00 Acute respiratory failure, unspecified whether with hypoxia or hypercapnia; R65.21 Severe sepsis with septic shock; E43 Unspecified severe protein-calorie malnutrition; J18.9 Pneumonia, unspecified organism; D69.6 Thrombocytopenia, unspecified; E11.40 Type 2 diabetes mellitus with diabetic neuropathy, unspecified; N39.0 Urinary tract infection, site not specified; I50.22 Chronic systolic (congestive) heart failure; E83.39 Other disorders of phosphorus metabolism; I11.0 Hypertensive heart disease with heart failure; D64.9 Anemia, unspecified; E78.5 Hyperlipidemia, unspecified; F41.1 Generalized anxiety disorder; I77.810 Thoracic aortic ectasia; K76.89 Other specified diseases of liver; W19.XXXA Unspecified fall, initial encounter; Z96.649 Presence of unspecified artificial hip joint; Z96.659 Presence of unspecified artificial knee joint; G89.4 Chronic pain syndrome; E11.65 Type 2 diabetes mellitus with hyperglycemia; E83.51 Hypocalcemia; F11.10 Opioid abuse, uncomplicated; F13.10 Sedative, hypnotic or anxiolytic abuse, uncomplicated; Y92.481 Parking lot as the place of occurrence of the external cause; Z79.899 Other long term (current) drug therapy; Z85.528 Personal history of other malignant neoplasm of kidney; Z79.82 Long term (current) use of aspirin; Z68.33 Body mass index [BMI] 33.0-33.9, adult
CPT/HCPCS: 31500; 31525; 36415; 36600; 43760; 51702; 70450; 71010; 74000; 74176; 78580; 80048; 80053; 80061; 80076; 80305; 81001; 82375; 82550; 82553; 82607; 82805; 82962; 83036; 83540; 83550; 83605; 83735; 83880; 84100; 84153; 84439; 84443; 84478; 84481; 84484; 84550; 85025; 85379; 85610; 85651; 86677; 86705; 86709; 86803; 87040; 87070; 87077; 87086; 87186; 87340; 87493; 92610; 93005; 93970; 94002; 94003; 94640; 96365; 97110; 97162; 97167; 99291; A6261; C9113; J0330; J1100; J1650; J1815; J1940; J1956; J2060; J2185; J2250; J2270; J2543; J2704; J2920; J3370; J3475; J3480; J3490; J7030; J7040; J7042; J7050; J7060; J7070; J7620; P9041; A4315

== ENCOUNTER 2018-10-05 01:52 | Inpatient (IN) | payer MEDICARE, MEDICAID ==
[2018-10-05] VITALS (9 sets, daily range): BP systolic 106–140; BP diastolic 61–86
[~2018-10-05] VITALS: Ht 185.4 cm; Wt 105.2 kg
[~2018-10-05 01:52] MED LIST changes: -TRAM50TA73 PO; +TRAM50TA94 PO
[2018-10-05] MEDS ORDERED: MORPHINE SULFATE 4 MG/ML CPJ (NOT FOR IM USE) IV STA (03:08)
[2018-10-05] MEDS ORDERED: ASPIRIN 81MG TABLET PO ONE (03:15)
[2018-10-05] MEDS ORDERED: TETANUS, DIPHTHERIA, PERTUSSIS VAC/PF 0.5ML (>7YR OLD) IM ONE (03:45)
[2018-10-05] MEDS ORDERED: SODIUM CHLORIDE 0.9% 1,000 ML IV ONE (04:00)
[2018-10-05 04:06] LABS: BASOPHILS % 0.5 % (0.0-2.0); EOSINOPHILS % 1.3 % (0.0-5.0); HEMATOCRIT. 40.1 % (42.0-52.0); HEMOGLOBIN. 12.3 g/dL (14.0-18.0); LYMPHOCYTES % 14.4 % (20.0-50.0); MEAN CORPUSCULAR HEMOGLOBIN 26.7 pg (28.0-32.0); MEAN CORPUSCULAR VOLUME 86.7 fL (80.0-94.0); MEAN PLATELET VOLUME 9.9 fl (7.4-10.4); MONOCYTES % 9.7 % (2.0-8.0); NEUTROPHILS % 74.1 % (40.0-76.0); PLATELET 144 x1000/uL (130-400); RED BLOOD CELL COUNT 4.63 mill/uL (4.7-6.1); RED CELL DISTRIBUTION WIDTH 14.2 % (11.6-14.6)
[2018-10-05 04:10] LABS: CHLORIDE 106 mEq/L (98-107)
[2018-10-05] MEDS ORDERED: HEPARIN 25,000 UNITS PREMIX 500 ML IV PRN (04:15)
[2018-10-05] MEDS ORDERED: HEPARIN 5000 UNITS/ML VIAL IV SCH (04:15)
[2018-10-05 04:43] LABS: PARTIAL THROMBOPLASTIN TIME 26.4 sec (23.4-31.0); PROTHROMBIN TIME 9.9 sec (9.1-11.1)
[2018-10-05] MEDS ORDERED: HYDROMORPHONE HCL/PF 2MG/ML CPJ IV ONE (04:45)
[2018-10-05] MEDS ORDERED: HEPARIN BOLUS PRN aPTT <30 IV (05:30)
[2018-10-05] MEDS ORDERED: HEPARIN BOLUS PRN aPTT 30-44 IV (05:30)
[2018-10-05] MEDS: NITROGLYCERIN 0.4MG TABLET SL SL PRN ×2 (06:09→06:16)
[2018-10-05] MEDS ORDERED: DOCUSATE SODIUM 100MG CAPSULE PO PRN (07:45)
[2018-10-05] MEDS ORDERED: MORPHINE SULFATE 4 MG/ML CPJ (NOT FOR IM USE) IV PRN ×2 (07:45→13:15)
[2018-10-05] MEDS ORDERED: NA PHOS,M-B/NA PHOS,DI-BA ENEMA 118ML PR PRN (07:45)
[2018-10-05] MEDS ORDERED: GUAIFENESIN 200MG/10ML SUGAR FREE UDC PO PRN (07:45)
[2018-10-05] MEDS ORDERED: ACETAMINOPHEN 325MG TABLET PO PRN ×2 (07:45→13:15)
[2018-10-05] MEDS ORDERED: MAGNESIUM/ALUMINUM HYDROXIDE/SIMETHICONE 30ML UDC PO PRN (07:45)
[2018-10-05] MEDS ORDERED: DIPHENHYDRAMINE 50MG/ML VIAL IV PRN (07:45)
[2018-10-05] MEDS ORDERED: CLONIDINE 0.1MG TABLET PO PRN (07:45)
[2018-10-05] MEDS ORDERED: IPRATROPIUM/ALBUTEROL 0.5-3(2.5)MG/3ML NEB INH PRN (07:45)
[2018-10-05] MEDS ORDERED: ONDANSETRON HCL 4MG/2ML INJ IV PRN ×2 (07:45→13:15)
[2018-10-05] MEDS ORDERED: ASPIRIN 81MG EC TABLET PO SCH (09:00)
[2018-10-05] MEDS ORDERED: IOHEXOL-300 100 ML BOTTLE ONE ×3 (11:43→12:24)
[2018-10-05] MEDS ORDERED: FENTANYL CITRATE/PF 50MCG/ML 2ML VIAL ONE (11:43)
[2018-10-05] MEDS ORDERED: MIDAZOLAM HCL 2 MG/2 ML VIAL ONE (11:43)
[2018-10-05] MEDS ORDERED: LIDOCAINE HCL 1% 20ML VIAL (Pyxis) INJ ONE (11:44)
[2018-10-05] MEDS ORDERED: HYDROMORPHONE HCL/PF 2MG/ML (OR) ONE (12:07)
[2018-10-05] MEDS ORDERED: MIDAZOLAM HCL 5 MG/5 ML VIAL ONE (12:15)
[2018-10-05] MEDS ORDERED: CLOPIDOGREL 75MG TABLET ONE (12:58)
[2018-10-05] MEDS ORDERED: DEXTROSE 50% WATER 50ML SYRINGE IV PRN (13:00)
[2018-10-05] MEDS ORDERED: ATROPINE SULFATE 1MG/10ML SYR IV PRN (13:15)
[2018-10-05] MEDS ORDERED: SODIUM CHL 0.45% + KCL 20MEQ/L 1,000 ML IV SCH (14:30)
[2018-10-05] MEDS: HYDROCODONE/ACETAMINOPHEN 10/325MG TABLET PO PRN ×2 (14:58→21:00)
[2018-10-05] MEDS ORDERED: HEPARIN SODIUM 1,000 UNIT/1ML VIAL IV ONE (15:18)
[2018-10-05] MEDS ORDERED: NITROGLYCERIN 50MCG/ML 10ML VIAL (CATH LAB) IV ONE (15:19)
[2018-10-05] MEDS ORDERED: NICARDIPINE 100MCG/ML 10ML VIAL (CATH LAB) IV ONE (15:19)
[2018-10-05 16:03] LABS: CHLORIDE 106 mEq/L (98-107)
[2018-10-05] MEDS ORDERED: ESOM40CA53 MT (16:06)
[2018-10-05] MEDS ORDERED: DIPH1TAB24 MT (16:06)
[2018-10-05] MEDS ORDERED: DEXL60CA3 MT (16:06)
[2018-10-05] MEDS ORDERED: LOSA100T14 MT (16:06)
[2018-10-05] MEDS ORDERED: TRAZ-212 MT (16:06)
[2018-10-05] MEDS ORDERED: ESCI10TA54 MT (16:06)
[2018-10-05] MEDS ORDERED: RANI300C8 MT (16:06)
[2018-10-05] MEDS ORDERED: HYDR-4135 MT (16:06)
[2018-10-05] MEDS ORDERED: MULT-1146 MT (16:06)
[2018-10-05] MEDS ORDERED: RIFA550T MT (16:06)
[2018-10-05] MEDS ORDERED: ISOS30TA6 MT (16:06)
[2018-10-05] MEDS ORDERED: NAPR220C7 MT (16:06)
[2018-10-05] MEDS ORDERED: UMEC1DIS IH (16:07)
[2018-10-05] MEDS: BLOOD SUGAR DIAGNOSTIC STRIP TEST SCH ×2 (16:50→21:00)
[2018-10-05] MEDS: INSULIN LISPRO 100 UNITS/ML SUBCUT SCH ×2 (17:18→21:00)
[2018-10-05] MEDS ORDERED: MAGNESIUM 2 G PREMIX 50 ML IV NR (21:00)
[2018-10-05] MEDS: ENOXAPARIN 30MG/0.3ML SYR SUBCUT SCH (21:00)
[2018-10-06] MEDS: HYDROCODONE/ACETAMINOPHEN 10/325MG TABLET PO PRN ×3 (03:00→15:33)
[2018-10-06] MEDS: INSULIN LISPRO 100 UNITS/ML SUBCUT SCH ×4 (07:20→21:00)
[2018-10-06 07:23] LABS: BASOPHILS % 0.4 % (0.0-2.0); EOSINOPHILS % 1.4 % (0.0-5.0); HEMATOCRIT. 36.7 % (42.0-52.0); HEMOGLOBIN. 11.6 g/dL (14.0-18.0); LYMPHOCYTES % 25.9 % (20.0-50.0); MEAN CORPUSCULAR VOLUME 85.4 fL (80.0-94.0); MEAN PLATELET VOLUME 9.9 fl (7.4-10.4); MONOCYTES % 12.5 % (2.0-8.0); NEUTROPHILS % 59.8 % (40.0-76.0); PLATELET 115 x1000/uL (130-400)
[2018-10-06 07:30] LABS: CHLORIDE 105 mEq/L (98-107)
[2018-10-06 07:44] LABS: LDL CHOLESTEROL 44 mg/dL (5-100)
[2018-10-06 07:45] LABS: HDL CHOLESTEROL 54 mg/dL (40-59)
[2018-10-06 07:46] LABS: T4 FREE 1.14 ng/dL (0.76-1.46)
[2018-10-06 08:03] VITALS: BP 118/74
[2018-10-06] MEDS: ASPIRIN 325MG TABLET PO SCH (09:31)
[2018-10-06] MEDS: CLOPIDOGREL 75MG TABLET PO SCH (09:31)
[2018-10-06] MEDS: ENOXAPARIN 30MG/0.3ML SYR SUBCUT SCH ×2 (09:31→21:00)
[2018-10-06] MEDS: LORAZEPAM 2MG/ML CPJ IV PRN ×2 (09:36→15:55)
[2018-10-06 10:00] VITALS: BP 137/72
[2018-10-06] MEDS ORDERED: MEDICATION NOT ON FORMULARY EA (Dexlansoprazole (Dexilant) 1 CAP) MT SCH (10:45)
[2018-10-06] MEDS ORDERED: RANITIDINE HCL MT SCH (10:45)
[2018-10-06] MEDS: BLOOD SUGAR DIAGNOSTIC STRIP TEST SCH ×3 (11:50→21:00)
[2018-10-06 12:00] VITALS: BP 168/63
[2018-10-06] MEDS: FAMOTIDINE 20MG TABLET PO SCH (13:45)
[2018-10-06] MEDS: OMEPRAZOLE 20MG CAPSULE EXTENDED RELEASE PO SCH (13:45)
[2018-10-06 14:00] VITALS: BP 150/69
[2018-10-06 17:47] VITALS: BP 145/84
[2018-10-06] MEDS: AMLODIPINE 10MG TABLET PO SCH (17:48)
[2018-10-06] MEDS: LOSARTAN POTASSIUM 100 MG TABLET PO SCH (17:48)
[2018-10-07] MEDS: CARVEDILOL 6.25 MG TABLET PO SCH ×2 (00:44→08:39)
[2018-10-07 04:00] VITALS: BP 120/74
[2018-10-07 06:00] VITALS: BP 118/65
[2018-10-07] MEDS: HYDROCODONE/ACETAMINOPHEN 10/325MG TABLET PO PRN (07:29)
[2018-10-07 08:00] VITALS: BP 124/85
[2018-10-07] MEDS: ASPIRIN 325MG TABLET PO SCH (08:38)
[2018-10-07] MEDS: OMEPRAZOLE 20MG CAPSULE EXTENDED RELEASE PO SCH (08:38)
[2018-10-07] MEDS: LOSARTAN POTASSIUM 100 MG TABLET PO SCH (08:50)
[2018-10-07] MEDS: CLOPIDOGREL 75MG TABLET PO SCH (08:52)
[2018-10-07] MEDS: FAMOTIDINE 20MG TABLET PO SCH (08:52)
[2018-10-07] MEDS: AMLODIPINE 10MG TABLET PO SCH (08:52)
[2018-10-07] MEDS ORDERED: ISOSORBIDE MONONITRATE 30MG TABLET SR 24HR PO SCH (09:00)
[2018-10-07] MEDS: ENOXAPARIN 30MG/0.3ML SYR SUBCUT SCH (09:06)
[2018-10-07 09:25] VITALS: BP 124/85
== END 2018-10-07 10:20 | disposition home or self-care (01) | DRG 982 ==
LOC: ER 01:52 → 6WST 04:04 → EDBEDREQ 04:05 → ENRESERV 10:30 → 3WST 13:38
PROVIDERS: ADMIT Internal Medicine; ATTEND Internal Medicine
PROC: 4A023N7 Measurement of Cardiac Sampling and Pressure, Left Heart, Percutaneous Approach (ICD-10-PCS; principal; 2018-10-05)
PROC: 027135Z Dilation of Coronary Artery, Two Arteries with Two Drug-eluting Intraluminal Devices, Percutaneous Approach (ICD-10-PCS; 2018-10-05)
PROC: B2111ZZ Fluoroscopy of Multiple Coronary Arteries using Low Osmolar Contrast (ICD-10-PCS; 2018-10-05)
PROC: B2151ZZ Fluoroscopy of Left Heart using Low Osmolar Contrast (ICD-10-PCS; 2018-10-05)
DX: M94.0 Chondrocostal junction syndrome [Tietze] (principal); E46 Unspecified protein-calorie malnutrition; I24.9 Acute ischemic heart disease, unspecified; I25.10 Atherosclerotic heart disease of native coronary artery without angina pectoris; I50.9 Heart failure, unspecified; E11.9 Type 2 diabetes mellitus without complications; D64.9 Anemia, unspecified; J44.9 Chronic obstructive pulmonary disease, unspecified; I25.2 Old myocardial infarction; I11.0 Hypertensive heart disease with heart failure; Z79.84 Long term (current) use of oral hypoglycemic drugs; Z79.899 Other long term (current) drug therapy; Z85.528 Personal history of other malignant neoplasm of kidney; Z87.891 Personal history of nicotine dependence; Z68.30 Body mass index [BMI] 30.0-30.9, adult
CPT/HCPCS: 36415; 71045; 73130; 80048; 80061; 82962; 83735; 83880; 84439; 84443; 84484; 85347; 86850; 86900; 90715; 92928; 92929; 93005; 93458; 96372; 99285; C1769; C1874; C1887; C1893; J1170; J1644; J1650; J2060; J2250; J2270; J2405; J3010; J3475; J3480; J3490; J7030; Q9967